=== PATIENT | female | born 1950 | race Two or more races ===

== ENCOUNTER 2017-06-08 09:33 | Outpatient (CLI) | payer OTHER ==
[~2017-06-08 09:33] MED LIST: CIPRO500 MG PO; CLARITIN10 MG PO; DICY20TA PO; DILTIAZEM HCL120 MG PO; IOPHEN DM-100 MG/5 M PO; LEVSIN/SL0.125 MG PO; LOTRISONE CREAM45 GM TP; PAXIL20 MG; POLY119PG PO; PREDNISONE10 MG PO; PROTONIX40 MG PO; RESTORIL30 M1; RISPERDAL3 MG; SURFAK240 M1 PO; TIGAN300 MG PO; XARELTO20 MG PO
== END 2017-06-08 09:44 | disposition home or self-care (01) ==
LOC: NUCLEAR 09:33
DX: I87.2 Venous insufficiency (chronic) (peripheral) (principal)

== ENCOUNTER 2018-06-16 10:27 | Outpatient (CLI) | payer OTHER | END 2018-06-16 10:37 | disposition home or self-care (01) | LOC: MAMO-SONO 10:27 | DX: Z12.31 Encounter for screening mammogram for malignant neoplasm of breast (principal); Z87.898 Personal history of other specified conditions; N60.02 Solitary cyst of left breast; N60.01 Solitary cyst of right breast; N63.10 Unspecified lump in the right breast, unspecified quadrant; N63.20 Unspecified lump in the left breast, unspecified quadrant ==